=== PATIENT | female | born 1970 | race Caucasian/White ===

== ENCOUNTER 2017-04-30 16:14 | Outpatient (RCR) | payer BC, SELFPAY ==
--- NOTE | 2017-04-30 17:57 | HMH.PTOPEV ---
Rehab Outpatient Evaluation Rehab OP Evaluation Start: 04/30/17 17:45 Freq: Status: Active Protocol: Document 04/30/17 17:46 KEEFESTUS (Rec: 04/30/17 17:57 RYAN [id number]) Electronically Signed By Sergo Solomon PT 04/30/17 17:46 Outpatient Therapy Subjective History Subjective History This is the initial Physical Therapy evaluation for Raquel Law. Pt is a 46 y/o female referred to PT for c/o L sided LBP. Pt reports pain began ~ 1 month ago after gymnastics practice. 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 Pt reports after this she felt like she had a strain . Pt reports ~ 1 week later she fell on ice in a parking lot, felt pop and severe pain, w/ c/o paresthesia in BLE. Chief Complaint Pain Stiff Symptom Type Ache Throb Sharp Dull Stabbing Numbness Tingling Symptoms Relieved By Rest/Positioning Ice Prescription Meds Symptoms Aggravated By Physical Activity Twisting Prior Functional Limitations None Current Functional Limitations Recreation Activity Symptom Description Constant but Variable Pain at Rest Activity Dependent Pain scale - at its best (0-10) 2 Pain scale - at its worst (0-10) 10 Lumbopelvic Eval Posture Thoracic Spine Posture Standing Position Neutral Lumbar Spine Posture Standing Position Neutral Assistive device Assistive Devices None / NA Palapation tenderness left thoracic spinal tenderness No lumbar spinal tenderness Yes paraspinal tenderness Yes buttock tenderness Yes: L PSIS and Post SIJ Ligaments Lumbar/Sacral Palpation Findings Tenderness Lumbar/Sacral Palpation Overall Comment Most TTP at L SIJ Range of Motion Lumbar Spine Active Flexion Range of WFL Motion (degrees) Lumbar Spine Active Extension Range of 10 w/pain Motion (degrees)
== END 2017-04-30 16:15 | disposition home or self-care (01) ==
LOC: PT 16:14
PROVIDERS: Family Provider Internal Medicine Adolescent Medicine; PCP Internal Medicine Adolescent Medicine; Visit Provider Internal Medicine Adolescent Medicine
DX: M54.5 Low back pain (principal)
CPT/HCPCS: 97033; 97110

== ENCOUNTER 2018-07-31 21:02 | Observation (INO) ==
[2018-07-31 21:15] LABS: Basophils % 0.5 % (0.1-2.0); Eosinophils # 0.2 K/mm3 (0.0-0.4); Eosinophils % 3.3 % (0.1-12.0); Hematocrit 42.5 % (37.0-47.0); Hemoglobin 14.8 g/dL (12.2-16.2); Lymphocytes % 46.1 % (10-50); Mean Corpuscular HGB Conc 34.9 g/dL (31.8-35.4); Mean Corpuscular Hemoglobin 33.2 pg (27.0-31.2); Mean Corpuscular Volume 95.1 fl (81-99); Mean Platelet Volume 7.8 fl (7.4-10.4); Monocytes # 0.3 K/mm3 (0.1-1.0); Monocytes % 4.8 % (1.7-9.3); Neutrophils % 45.3 % (37.0-80.0); Platelet Count 241 K/mm3 (142-424); Red Blood Count 4.47 M/mm3 (4.20-5.40); Red Cell Distribution Width 12.4 % (11.5-17.5); White Blood Count 6.5 K/mm3 (4.8-10.8)
[2018-07-31 21:33] LABS: Anion Gap 15.7 mEq/L (5-15); Blood Urea Nitrogen 15 mg/dL (7-18); Calcium 9.2 mg/dL (8.5-10.1); Carbon Dioxide 26 mmol/L (21.0-32.0); Chloride 103 mmol/L (98-107); Glucose 125 mg/dL (74-106); Potassium 3.7 mmoL/L (3.5-5.1); Sodium 141 mmol/L (136-145)
--- NOTE | 2018-07-31 21:50 | Emergency Department Note ---
ED Disposition Clinical Impression: Chest pain Qualifiers: Chest pain type: precordial pain Qualified Code(s): R07.2 - Precordial pain Disposition: Admitted as Observation Condition on Discharge: Good - Critical Care Critical Care Time: No Attestation: On 07/31/18, the high probability of a clinically significant, sudden or life threatening deterioration of the following system(s) required my full and direct attention, intervention and personal management. The time I documented below is in addition to time spent performing reported procedures but includes the following listed in this critical care notation. Medical Decision Making - Medical Records Medical records reviewed: Yes: I reviewed the patient's medical records. - Fabrizio Inquiry Pt receiving controlled substance: No Vital Signs: 07/31/18 21:05 Temperature 98.0 F Temperature Source Oral Pulse Rate [Right] 86 Respiratory Rate 18 Blood Pressure [Right Arm] 124/75 Blood Pressure Mean [Right Arm] 91 Blood Pressure Source [Right Arm] Automatic Cuff Blood Pressure Position [Right Arm] Supine 02 Sat by Pulse Oximetry 96 Oxygen Delivery Method Room Air - Lab Data Lab results reviewed: Yes: I reviewed the patient's lab results. Lab Results 07/31/18 21:00: WBC 6.5, RBC 4.47, Hgb 14.8, Hct 42.5, MCV 95.1, MCH 33.2 H, MCHC 34.9, RDW 12.4, Plt Count 241, MPV 7.8, Neut % (Auto) 45.3, Lymph % (Auto) 46.1, Daniels % (Auto) 4.8, Eos % (Auto) 3.3, Baso % (Auto) 0.5, Neut # (Auto) 3.0, Lymph # (Auto) 3.0, Daniels # (Auto) 0.3, Eos # (Auto) 0.2, Baso # (Auto) 0.0 07/31/18 21:00: Sodium 141, Potassium 3.7, Chloride 103, Carbon Dioxide 26, Anion Gap 15.7 H, BUN 15, Creatinine 0.97, Estimated Creat Clear 65, Estimated GFR 62, Est GFR ( Amer) 74, Glucose 125 H, Calcium 9.2, Troponin I < 0.02 Result diagrams: 07/31/18 21:00 07/31/18 21:00 Orders (Tests/Meds): ED MEDICATIONS Generic Name Dose Route Start Last Admin Trade Name Freq PRN Reason Stop Dose Admin Sodium Chloride 1,000 mls @ 999 mls/hr 07/31/18 21:15 07/31/18 21:13 Sod Chlor 0.9% 1000ml Bag IV 07/31/18 22:15 999 mls/hr .Q1H1M AVINASH Administration Discontinued Medications Generic Name Dose Route Start Last Admin Trade Name Antonioq PRN Reason Stop Dose Admin Aspirin 324 mg 07/31/18 21:04 07/31/18 21:12 Aspirin 81mg Chewable Tablet PO 07/31/18 21:05 324 mg ONCE ONE Administration Ioversol 70 ml 07/31/18 22:05 07/31/18 22:07 Rad-Optiray 350 100ml Vial IV 07/31/18 22:06 70 ml ONCE ONE Administration Protocol Sodium Chloride 50 ml 07/31/18 22:05 07/31/18 22:07 Rad-Ns 50ml Vial IV 07/31/18 22:06 50 ml ONCE ONE Administration ORDERS Category Date Time Status CT angio chest Stat Cat Scan 07/31/18 21:37 Taken Chest XR 2 view (NOT portable) [XR chest 2V] Stat Exams 07/31/18 21:03 Taken - Radiology Data #1 Image(s): Chest Image Reviewed: Yes I reviewed the patient's radiology image Preliminary Findings: Normal/NAD - CT Data CT Scan: Chest Time Received: 22:[address] Reviewed: Yes: I have viewed the radiologist's interpretation Preliminary Findings: Normal/NAD - ECG Data Tracing #1 Normal Sinus Rhythm: Yes Ischemic changes: non-specific ST-T wave changes Chest Pain HPI - General Chief Complaint: Chest Pain Stated Complaint: chest pain Time Seen by Provider: 07/31/18 21:20 Mode of Arrival: Ambulatory Source of Information: Patient, Spouse, Medical Record Limitations: No Limitations Description of Symptoms (Recalled from ER Triage Doc. by RN): Pt states she started having chest pain with SOA after a run - History of Present Illness HPI narrative: acute 30-40 min episode of chest pain squeezing type and assoc sob - no prev episodes - resolved - no diaphoresis and no vomiting complaint: chest pain indicative of cardiac Onset (ago): hour(s) Duration: now resolved Activity at onset: during exertion Pain location: substernal Severity: severe Quality: other (squeezing ) Associated symptoms: sense of impending doom Risk Factors for CAD: Family Hx of CAD Treatments prior to or on arrival for Cardiac Chest Pain: none - ALAN Score for Non-Stemi Age of Patient: 40-49 years old Heart Rate: 70-89 bpm Systolic Blood Pressure: 120-139 mmhg Serum Creatinine: 0.80-1.19 mg/dl CHF Killip Class: I-No CHF Other Risk Factors: None Non-Stemi Risk Score: 75 - Related Data Allergies Allergy/AdvReac Type Severity Reaction Status Date / Time No Known Allergies Allergy Verified 07/31/18 21:11 [facility] History - Hepatitis A Screen Drug use history?: No High risk sexual behaviors?: No History of sexually transmitted infection?: No Currently employed?: No Childcare worker?: No Do you have indoor plumbing?: Yes Do you have electricity?: Yes Attestation statement:: This patient has been screened for Hepatitis A risk factors. I have reviewed the patient's past medical history: Yes Medical History: Denies:: Diabetes Mellitus Type 1, Diabetes Mellitus Type 2 - Social History Alcohol Intake: never Occupational Status: employed - Psychiatric History Expresses thoughts of harming self/others: None Suicide Plan Description: No Plan ROS Obtained: Yes All systems reviewed & no additional complaints - Constitutional Constitutional: Denies fever(s) - Eyes Eyes: Denies change in vision - ENT Ears, Nose, Mouth, and Throat: Denies sore throat - Cardiovascular Cardiovascular: Reports chest pain, Reports chest pain with activity, Reports dyspnea - Respiratory Respiratory: No cough - Gastrointestinal Gastrointestingal: Denies: abdominal pain - Genitourinary Female Genitourinary: Denies hematuria - Musculoskeletal Musculoskeletal: Denies joint pain - Integumentary/Breasts Skin/Breast: Denies rash - Neurologic Neurologic: Denies seizure-like activity Physical Exam - General General appearance: alert, in no apparent distress - Head Head exam: normocephalic - Eye Eye exam: Present: PERRL, EOMI. Absent: scleral icterus - ENT ENT exam: Present: mucous membranes moist - Neck Neck exam: Present: trachea midline - Respiratory Respiratory exam: Present: normal lung sounds bilaterally. Absent: respiratory distress - Cardiovascular Cardiovascular exam: Present: regular rate, systolic murmur - Abdominal Exam Abdominal exam: Present: soft. Absent: tenderness - Extremities Exam Extremities exam: Present: full ROM - Neurological Exam Neurological exam: Present: alert, oriented X3, CN II-XII intact - Psychiatric Psychiatric exam: Present: normal affect - Skin Skin exam: Absent: rash
[2018-08-01 04:56] LABS: Basophils % 0.4 % (0.1-2.0); Eosinophils # 0.1 K/mm3 (0.0-0.4); Eosinophils % 2.8 % (0.1-12.0); Hematocrit 38.9 % (37.0-47.0); Lymphocytes # 1.8 K/mm3 (0.7-4.5); Lymphocytes % 37.2 % (10-50); Mean Corpuscular Hemoglobin 32.9 pg (27.0-31.2); Mean Corpuscular Volume 96.9 fl (81-99); Mean Platelet Volume 8.5 fl (7.4-10.4); Monocytes # 0.2 K/mm3 (0.1-1.0); Monocytes % 4.3 % (1.7-9.3); Neutrophils # 2.7 K/mm3 (1.8-7.8); Neutrophils % 55.4 % (37.0-80.0); Platelet Count 172 K/mm3 (142-424); Red Blood Count 4.01 M/mm3 (4.20-5.40); Red Cell Distribution Width 12.4 % (11.5-17.5); White Blood Count 4.8 K/mm3 (4.8-10.8)
[2018-08-01 05:03] LABS: Hemoglobin 13.3 g/dL (12.2-16.2)
[2018-08-01 05:07] LABS: Anion Gap 11.7 mEq/L (5-15); Calcium 9.2 mg/dL (8.5-10.1); Chol/HDL Ratio 1.9 (1-3.5); Potassium 3.7 mmoL/L (3.5-5.1)
--- NOTE | 2018-08-01 07:37 | H&P/Discharge Summary ---
General - General Admission date:: 07/31/18 Discharge date: 08/01/18 *Admission Date: 07/31/18 *Chief complaint: Chest pain *History of present illness: 47-year-old white female with essentially no past medical history who was jogging yesterday evening after eating some spaghetti and a couple of miles into her jog began to have substernal squeezing pain. She had no nausea, no diaphoresis or dyspnea over her baseline, and was able to walk partway and then finished her dog while running. She came back home and had another episode of pain while talking to her , again centered in the substernal area that she describes as an intensely painful squeezing sensation. No palpitations. She is had no recent problems with dyspnea, edema, palpitations or functional issues. Her transported her to the emergency department, and as they pulled into the parking lot the pain suddenly subsided. Evaluation in the ER was negative but she was admitted overnight for rule out MS. [facility] History I have reviewed the patient's past medical history: Yes Medical History: Denies:: Cancer, Diabetes Mellitus Type 1, Diabetes Mellitus Type 2, MRSA *Have you ever received a pneumonia vaccine?: No *Have you received a flu vaccine this season?: Yes Other Surgeries: Yes: , Thyroidectomy, Other (ABLATION) Amputation: No Fractures: No - *Social History Educational Level: Attended College Smoking Status: Never smoker Alcohol Intake: never *Occupational Status:: employed Housing: house Household Members: spouse *Travel in the last 8 weeks: None - Psychiatric History Expresses thoughts of harming self/others: None Suicide Plan Description: No Plan Family Hx:: Coronary Artery Disease, Diabetes, Hypertension Review of Systems - Review of Systems Review of systems:: pertinent systems reviewed and negative unless documented below - Constitutional Denies anorexia, Denies body ache(s), Denies fatigue - Eyes Denies blind spots, Denies blurry vision - ENT Denies abnormal hearing, Denies bleeding gums - *Cardiovascular Reports chest pain, Reports chest pain with activity, Denies shortness of breath, Denies shortness of breath with activity, Denies irregular heart rhythm, Denies leg swelling, Denies shortness of breath when lying down - *Respiratory Denies change in phlegm color, Denies chest congestion, Denies cough - *Gastrointestinal Denies abdominal pain, Denies belching, Denies change in stools - *Genitourinary Denies abnormal periods - *Musculoskeletal Denies abnormal walking, Denies joint pain, Denies decreased muscle mass - Integumentary/Breasts Denies acne - *Neurologic Denies abnormal walking, Denies behavioral changes, Denies burning sensations, Denies seizure-like activity - Psychiatric Denies abnormal sleep pattern Exam Vital signs and Labs for Last 24 Hours: Temp Pulse Resp BP Pulse Ox 97.6 F 66 16 116/66 100 08/01/18 04:00 08/01/18 04:00 08/01/18 04:00 08/01/18 04:00 08/01/18 04:00 Laboratory Results - last 24 hr 07/31/18 21:00: WBC 6.5, RBC 4.47, Hgb 14.8, Hct 42.5, MCV 95.1, MCH 33.2 H, MCHC 34.9, RDW 12.4, Plt Count 241, MPV 7.8, Neut % (Auto) 45.3, Lymph % (Auto) 46.1, Loup % (Auto) 4.8, Eos % (Auto) 3.3, Baso % (Auto) 0.5, Neut # (Auto) 3.0, Lymph # (Auto) 3.0, Loup # (Auto) 0.3, Eos # (Auto) 0.2, Baso # (Auto) 0.0 07/31/18 21:00: Sodium 141, Potassium 3.7, Chloride 103, Carbon Dioxide 26, Anion Gap 15.7 H, BUN 15, Creatinine 0.97, Estimated Creat Clear 65, Estimated GFR 62, Est GFR ( Amer) 74, Glucose 125 H, Calcium 9.2, Troponin I < 0.02 08/01/18 01:55: Troponin I < 0.02 08/01/18 04:45: Troponin I < 0.02 08/01/18 04:45: WBC 4.8 D, RBC 4.01 L, Hgb 13.3 D, Hct 38.9, MCV 96.9, MCH 32.9 H, MCHC 34.0, RDW 12.4, Plt Count 172 D, MPV 8.5, Neut % (Auto) 55.4, Lymph % (Auto) 37.2, Loup % (Auto) 4.3, Eos % (Auto) 2.8, Baso % (Auto) 0.4, Neut # (Auto) 2.7, Lymph # (Auto) 1.8, Loup # (Auto) 0.2, Eos # (Auto) 0.1, Baso # (Auto) 0.0 08/01/18 04:45: Sodium 142, Potassium 3.7, Chloride 106, Carbon Dioxide 28, Anion Gap 11.7, BUN 14, Creatinine 0.74 D, Estimated Creat Clear 85, Estimated GFR 84, Est GFR ( Amer) 102 D, Glucose 96 D, Calcium 9.2, Magnesium 1.7, Triglycerides 22 L, Cholesterol 128 L, LDL Cholesterol 57, VLDL Cholesterol 4, HDL Cholesterol 67, Cholesterol/HDL Ratio 1.9 I & O for Last 24 hours: Intake & Output 07/29/18 07/30/18 07/31/18 08/01/18 11:59 11:59 11:59 11:59 Intake Total 1250 / 1250 Balance 1250 / 1250 Weight 127 lb 5 oz - Constitutional no acute distress, thin - *Routine HEENT Exam Head: Present: normocephalic, atraumatic Eye: Present: EOMI, PERRL - *Routine Neck Exam Present: supple, full ROM. Absent: JVD, carotid bruit - Routine Chest/Breast/Axilla Exam Chest wall: Present: tenderness - *Routine Respiratory Exam Present: CTA bilaterally. Absent: accessory muscle use, prolonged expiratory phase, rales, respiratory distress - *Routine Cardiovascular Exam Present: RRR, Normal S1, Normal S2, murmur - *Routine Abdominal Exam Present: soft, normoactive bowel sounds. Absent: tenderness - *Routine Extremities Exam Absent: cyanosis, clubbing, edema, full ROM Hospital Course Hospital Course: Patient was admitted overnight, ruled out for myocardial infarction, no further pain, no problems with swallowing. This morning exam remains normal. Feels good. Preliminary echo reports look normal. Probable issue is esophageal spasm. Plan will be to discharge home on omeprazole. We will set up outpatient stress test and follow-up in the office in a couple of weeks. Results Labs on day of discharge: Labs from last 24 hours 08/01/18 08/01/18 08/01/18 04:45 04:45 04:45 WBC 4.8 D RBC 4.01 L Hgb 13.3 D Hct 38.9 MCV 96.9 MCH 32.9 H MCHC 34.0 RDW 12.4 Plt Count 172 D MPV 8.5 Neut % (Auto) 55.4 Lymph % (Auto) 37.2 Loup % (Auto) 4.3 Eos % (Auto) 2.8 Baso % (Auto) 0.4 Neut # (Auto) 2.7 Lymph # (Auto) 1.8 Loup # (Auto) 0.2 Eos # (Auto) 0.1 Baso # (Auto) 0.0 Sodium 142 Potassium 3.7 Chloride 106 Carbon Dioxide 28 Anion Gap 11.7 BUN 14 Creatinine 0.74 D Estimated Creat Clear 85 Estimated GFR 84 Est GFR ( Amer) 102 D Glucose 96 D Calcium 9.2 Magnesium 1.7 Troponin I < 0.02 Triglycerides 22 L Cholesterol 128 L LDL Cholesterol 57 VLDL Cholesterol 4 HDL Cholesterol 67 Cholesterol/HDL Ratio 1.9 08/01/18 07/31/18 07/31/18 01:55 21:00 21:00 WBC 6.5 RBC 4.47 Hgb 14.8 Hct 42.5 MCV 95.1 MCH 33.2 H MCHC 34.9 RDW 12.4 Plt Count 241 MPV 7.8 Neut % (Auto) 45.3 Lymph % (Auto) 46.1 Loup % (Auto) 4.8 Eos % (Auto) 3.3 Baso % (Auto) 0.5 Neut # (Auto) 3.0 Lymph # (Auto) 3.0 Loup # (Auto) 0.3 Eos # (Auto) 0.2 Baso # (Auto) 0.0 Sodium 141 Potassium 3.7 Chloride 103 Carbon Dioxide 26 Anion Gap 15.7 H BUN 15 Creatinine 0.97 Estimated Creat Clear 65 Estimated GFR 62 Est GFR ( Amer) 74 Glucose 125 H Calcium 9.2 Magnesium Troponin I < 0.02 < 0.02 Triglycerides Cholesterol LDL Cholesterol VLDL Cholesterol HDL Cholesterol Cholesterol/HDL Ratio DS: Diagnosis - Discharge Diagnosis (1) Esophageal spasm Status: Resolved (2) Chest pain Status: Resolved Discharge Medications - Medications for Discharge Home Medication List at Discharge: New Omeprazole 20 mg PO DAILY #30 tablet.dr Continued Doxycycline Hyclate [Doxycycline 20mg Tablet] 20 mg PO BID
--- NOTE | 2018-08-01 18:01 | Cardiology Report ---
PROCEDURE: 2-D M-mode and color Doppler study INDICATIONS FOR THE TEST: Chest pain X COPD Heart Murmur Tobacco Smoking Palpitations Fatigue Syncope Edema Hypertension Diabetes Mellitus Rheumatic Fever SOB HOLMAN Obesity Hyperlipidemia Family History HD Additional History PATIENT INFORMATION HEIGHT: 63 WEIGHT:127 GENDER: Female B/P:124/75 2-D/M-MODE INTERPRETATION: 2-D MEASUREMENTS OBSERVED VALUES IN CMS Right Ventricular Dimension (RVDd) 2.0 Interventricular Septum (Thickness)(IVsd) .7 Left Ventricular Internal Dimensions(LVIDd) 5.3 Left Ventricular Posterior Wall (Thickness)(LVPWd) .7 Aortic Root 2.4 Aortic Cusp Separation 1.5 Left Atrial Dimensions (LAD) 2.4 2D 1. Left atrium is normal size, left ventricle is normal size, there is no concentric left ventricular hypertrophy, visually estimated ejection fraction 55% with no regional wall motion abnormality. 2. The right atrium and right ventricle are normal size and contractility. 3. The aortic, mitral and tricuspid valve are grossly normal. 4. The pulmonic valve is poorly visualized. 5. No significant pericardial effusion noted. DOPPLER INTERROGATION: Doppler interrogation of the aortic, mitral and tricuspid valvular presence of mild mitral and tricuspid regurgitation, tricuspid regurgitation jet velocity is inadequate for calculation of the right ventricular systolic pressure, diastolic parameters are within normal range. CONCLUSION: 1. Normal left ventricular size, preserved left ventricular systolic function, visually estimated ejection fraction 55% with no regional wall motion abnormality, diastolic parameters are within normal range. 2. Mild mitral and tricuspid regurgitation 3. No significant pericardial effusion noted.
== END 2018-08-01 09:54 | disposition home or self-care (01) ==
LOC: 2ND 21:02 → ER 21:02 → 2ND 23:15
PROVIDERS: ADMIT Emergency Medicine; ATTEND Internal Medicine Adolescent Medicine
DX: R06.02 Shortness of breath; K22.4 Dyskinesia of esophagus; R07.9 Chest pain, unspecified
CPT/HCPCS: 36415; 71020; 71046; 71275; 80048; 80061; 83735; 84484; 85025; 93005; 93306; 96365; 99284; G0378; Q9967

== ENCOUNTER → 2018-08-05 09:13 | Outpatient (CLI) | payer BC, SELFPAY | PROVIDERS: PCP Internal Medicine Adolescent Medicine; Visit Provider Internal Medicine Adolescent Medicine | DX: R07.9 Chest pain, unspecified (principal) | CPT/HCPCS: 93017 ==

== ENCOUNTER 2020-03-20 09:13 | Emergency (ER) | payer BC, SELFPAY ==
[2020-03-20 09:15] VITALS: BP 140/74; PULSE 70; RESP 16; TEMP 36.8; O2SAT 98; BMI 22.1
[2020-03-20 09:28] LABS: UTC Strep Screen (Rapid) Positive (Negative)
--- NOTE | 2020-03-20 09:41 | HMH.EDUTC ---
[facility] [place] Clinical Impression: Strep throat Disposition: Home, Self-Care Condition on Discharge: Good Instructions: Strep Throat, DI for Strep Throat Additional Instructions: Drink plenty of fluids. Take tylenol or ibuprofen for pain or fever. Take the medications as directed. Follow up with your regular doctor. GO TO THE ER FOR ANY WORSENING SYMPTOMS Throw your tooth brush away and get a new one. Prescriptions: Amoxicillin [Amoxicillin 500mg Tab] 500 mg PO TID 10 Days #30 tab Transmission Status: Received by [id number] predniSONE [Deltasone 10mg tablet] 10 mg PO BID 3 Days #6 tab Transmission Status: Received by [id number] Referrals: Torres Jack MD [Primary Care Provider] - Time of Disposition: 09:43 Medical Decision Making - Medical Records Medical records reviewed: No: I reviewed the patient's medical records. - Fabrizio Inquiry Pt receiving controlled substance: No Vital Signs: 03/20/20 09:15 03/20/20 09:45 Temperature 98.3 F 98.3 F Temperature Source Oral Pulse Rate 70 Pulse Rate [Right Brachial] 70 Respiratory Rate 16 16 Blood Pressure 140/74 Blood Pressure [Right Arm] 140/74 Blood Pressure Mean [Right Arm] 96 Blood Pressure Source [Right Arm] Automatic Cuff Blood Pressure Position [Right Arm] Sitting 02 Sat by Pulse Oximetry 98 Oxygen Delivery Method Room Air - Lab Data Lab results reviewed: Yes: I reviewed the patient's lab results. Lab Results 03/20/20 09:27: Strep Scn Rapid Clinic Positive A [facility] [place] - General Stated complaint: sore throat Time Seen by Provider: 03/20/20 09:41 Mode of Arrival: Ambulatory Source of Information: Patient Limitations: No Limitations Description of Symptoms (Recalled from Triage Doc. by RN): PATIENT C/O SORE THROAT HEENT Symptoms (Recalled from RN notes): Yes Resp Symptoms (Recalled from RN notes): No Skin Symptoms (Recalled from RN notes): No MS Symptoms (Recalled from RN notes): No Functional Status (Recalled from RN notes): wnl - History of Present Illness Provider Complaint: She c/o sore throat for the past 3 days. She has a history of getting strep throat fairyly often. She denies any known covid exposure. - Related Data Previous Rx's Medication Instructions Recorded Amoxicillin [Amoxicillin 500mg Tab] 500 mg PO TID 10 Days #30 tab 03/20/20 predniSONE [Deltasone 10mg tablet] 10 mg PO BID 3 Days #6 tab 03/20/20 Allergies Allergy/AdvReac Type Severity Reaction Status Date / Time No Known Allergies Allergy Verified 06/03/19 11:23 - Worker's Comp Is this a Worker's Comp case?: No [facility] History - Hepatitis A Screen Drug use history?: No High risk sexual behaviors?: No History of sexually transmitted infection?: No Currently employed?: No Childcare worker?: No Do you have indoor plumbing?: Yes Do you have electricity?: Yes Attestation statement:: This patient has been screened for Hepatitis A risk factors. I have reviewed the patient's past medical history: Yes Medical History: Denies:: Cancer, Diabetes Mellitus Type 1, Diabetes Mellitus Type 2, MRSA Other Surgeries: Yes: , Thyroidectomy, Other Amputation: No Fractures: No - Social History Smoking Status: Never smoker Alcohol Intake: never Occupational Status: other Housing: house Household Members: spouse Family Hx:: Coronary Artery Disease, Diabetes, Hypertension ROS Obtained: Yes All systems reviewed & no additional complaints - Constitutional Constitutional: Reports chills, Denies fever(s), Reports poor appetite, Reports malaise - Eyes Eyes: Denies eye discharge - ENT Ears, Nose, Mouth, and Throat: Reports as per HPI - Cardiovascular Cardiovascular: Denies chest pain - Gastrointestinal Gastrointestingal: Reports: nausea. Denies: abdominal pain, diarrhea, vomiting Physical Exam - General General appearance: alert, in no apparent distress - Head Head exam: atrauma
[2020-03-20 09:45] VITALS: BP 140/74; PULSE 70; RESP 16; TEMP 36.8; O2SAT 98
== END 2020-03-20 09:48 | disposition home or self-care (01) ==
PROVIDERS: Emergency Provider Nurse Practitioner Family; PCP Internal Medicine Adolescent Medicine
DX: J02.0 Streptococcal pharyngitis (principal)
CPT/HCPCS: 87880; 99201

== ENCOUNTER 2020-09-04 14:19 | Emergency (ER) | payer BC, SELFPAY ==
[2020-09-04 14:32] VITALS: BP 121/73; PULSE 74; RESP 16; TEMP 36.4; O2SAT 98; BMI 24.7
[2020-09-04 14:47] LABS: Apearance,Urine Turbid (Clear); Color,Urine Orange (Yellow); Glucose,Urine (UA) Negative (Negative); Ketones,Urine Negative (Negative); Protein,Urine Negative (Negative); Specific Gravity, Urine > 1.030 (1.005-1.030)
[2020-09-04 14:48] LABS: Bilirubin,Urine Negative (Negative); Blood, Urine Trace (Negative); UTC Leukocyte Esterase,Urine Negative (Negative); UTC Nitrate,Urine Positive (Negative); Urobilinogen,Urine 0.2 EU/dl (0.2)
--- NOTE | 2020-09-04 15:03 | HMH.EDUTC ---
[facility] Disposition Clinical Impression: UTI (urinary tract infection) Qualifiers: Urinary tract infection type: site unspecified Hematuria presence: with hematuria Qualified Code(s): N39.0 - Urinary tract infection, site not specified Disposition: Home, Self-Care Condition on Discharge: Good Instructions: Urinary Tract Infection, DI for Urinary Tract Infection (UTI) Additional Instructions: Drink plenty of fluids. Take tylenol or ibuprofen for pain or fever. Take the medications as directed. Follow up with your regular doctor. GO TO THE ER FOR ANY WORSENING SYMPTOMS The pyridium will make your urine turn orange, this is an expected side effect. It will stain your clothes if it comes into contact with them. Prescriptions: Sulfamethoxazole/Trimethoprim [Bactrim DS tablet] 1 each PO BID 7 Days #14 tab Transmission Status: Received by [id number] Phenazopyridine HCl [Pyridium 200mg Tablet] 200 pow PO TID #6 tab Transmission Status: Received by [id number] Referrals: Torres Jack MD [Primary Care Provider] - Time of Disposition: 15:06 Medical Decision Making - Medical Records Medical records reviewed: No: I reviewed the patient's medical records. - Fabrizio Inquiry Pt receiving controlled substance: No Vital Signs: 09/04/20 14:32 09/04/20 15:21 Temperature 97.6 F 98 F Temperature Source Oral Pulse Rate 79 Pulse Rate [Right] 74 Respiratory Rate 16 16 Blood Pressure 120/74 Blood Pressure [Right Arm] 121/73 Blood Pressure Mean [Right Arm] 89 Blood Pressure Source [Right Arm] Automatic Cuff Blood Pressure Position [Right Arm] Sitting 02 Sat by Pulse Oximetry 98 Oxygen Delivery Method Room Air - Lab Data Lab Results 09/04/20 14:42: Urine Color [place], Urine Appearance Turbid, Urine pH 6.0, Ur Specific [place] > 1.030 H, Urine Protein Negative, Urine Glucose (UA) Negative, Urine Ketones Negative, Urine Blood Trace, Urine Nitrate Positive A, Urine Bilirubin Negative, Urine Urobilinogen 0.2, Ur Leukocyte Esterase Negative Orders (Tests/Meds): ORDERS Category Date Time Status Urine Culture Stat Micro 09/04/20 18:26 Ordered [facility] HPI - General Stated complaint: Poss UTI Time Seen by Provider: 09/04/20 15:03 Mode of Arrival: Ambulatory Source of Information: Patient Limitations: No Limitations HEENT Symptoms (Recalled from RN notes): No Resp Symptoms (Recalled from RN notes): No Skin Symptoms (Recalled from RN notes): No MS Symptoms (Recalled from RN notes): No Functional Status (Recalled from RN notes): na - History of Present Illness Provider Complaint: She states that for the past 2 days, she has had low back pain and burning while urinating. She believes that she has a uti. - Related Data Previous Rx's Medication Instructions Recorded Amoxicillin [Amoxicillin 500mg Tab] 500 mg PO TID 10 Days #30 tab 03/20/20 predniSONE [Deltasone 10mg tablet] 10 mg PO BID 3 Days #6 tab 03/20/20 Phenazopyridine HCl [Pyridium 200 pow PO TID #6 tab 09/04/20 200mg Tablet] Sulfamethoxazole/Trimethoprim 1 each PO BID 7 Days #14 tab 09/04/20 [Bactrim DS tablet] Allergies Allergy/AdvReac Type Severity Reaction Status Date / Time No Known Allergies Allergy Verified 06/03/19 11:23 - Worker's Comp Is this a Worker's Comp case?: No [facility] History - Hepatitis A Screen Drug use history?: No High risk sexual behaviors?: No History of sexually transmitted infection?: No Currently employed?: No Childcare worker?: No Do you have indoor plumbing?: Yes Do you have electricity?: Yes Attestation statement:: This patient has been screened for Hepatitis A risk factors. I have reviewed the patient's past medical history: Yes Medical History: Denies:: Cancer, Diabetes Mellitus Type 1, Diabetes Mellitus Type 2, MRSA Other Surgeries: Yes: , Thyroidectomy, Other Amputation: No Fractures: No - Social History Smoking Status: N
[2020-09-04 15:21] VITALS: BP 120/74; PULSE 79; RESP 16; TEMP 36.6
== END 2020-09-04 15:23 | disposition home or self-care (01) ==
PROVIDERS: Emergency Provider Nurse Practitioner Family; PCP Internal Medicine Adolescent Medicine
DX: N30.00 Acute cystitis without hematuria (principal)
CPT/HCPCS: 81003; 99202; G0463

== ENCOUNTER 2022-01-03 11:01 | Emergency (ER) | payer BC, SELFPAY ==
[2022-01-03 11:31] VITALS: BP 165/84; PULSE 68; RESP 18; TEMP 36.7; O2SAT 99; BMI 24.7
--- NOTE | 2022-01-03 11:31 | EXP.UTC ---
Discharge Plan Disposition Patient Disposition: Home, Self-Care Condition: Good Prescriptions Prescriptions: New nitrofurantoin monohyd/m-cryst [Macrobid] 100 mg Capsule 100 mg PO BID Qty: 10 0RF Rx Instructions: must administer with a meal/food phenazopyridine [Pyridium] 200 mg tablet 200 mg PO Q8H 2 Days Qty: 6 0RF fluconazole [Diflucan] 150 mg tablet 150 mg PO ONCE Qty: 1 2RF No Action phenazopyridine 200 MG tablet 200 pow PO TID Qty: 6 0RF sulfamethoxazole-trimethoprim 1 EACH tablet 1 each PO BID 7 Days Qty: 14 0RF prednisone 10 MG tablet 10 mg PO BID 3 Days Qty: 6 0RF amoxicillin 500 MG tablet 500 mg PO TID 10 Days Qty: 30 0RF Referrals Follow up/Referrals: Torres Jack MD [Primary Care Provider] - See instructions Activity Restrictions/Add. Instructions Additional Instructions/Restrictions: Drink plenty of fluids. Take tylenol or ibuprofen for pain or fever. Take the medications as directed. Follow up with your regular doctor. GO TO THE ER FOR ANY WORSENING SYMPTOMS The pyridium will make your urine turn orange, this is an expected side effect. It will stain your clothes if it comes into contact with them. We will culture the urine. That will tell what bacteria is causing your infection and which antibiotics will treat it best. Sometimes the first antibiotic we prescribe turns out to not work against different bacteria. So, make sure you follow up within 3 days if you are not getting better. Clinical Impressions Clinical Impression: UTI (urinary tract infection) Instructions Patient Instructions: Urinary Tract Infection, DI for Urinary Tract Infection (UTI) Discharge ED Provider: Sudeep Hunt [facility] General Stated complaint: possible UTI Time Seen by Provider: 01/03/22 11:31 History of Present Illness Provider Complaint: She states that for the past 2 days she has had lower back discomfort, dysuria and urinary frequency. Related Data Previous Rx's Medication Instructions Recorded amoxicillin 500 mg tablet 500 mg PO TID 10 days #30 tabs 03/20/20 prednisone 10 mg tablet 10 mg PO BID 3 days #6 tabs 20 phenazopyridine 200 mg tablet 200 pow PO TID #6 tabs 09/04/20 sulfamethoxazole 800 1 each PO BID 7 days #14 tabs 09/04/20 mg-trimethoprim 160 mg tablet fluconazole 150 mg tablet 150 mg PO ONCE #1 tab 01/03/22 (Diflucan) nitrofurantoin 100 mg PO BID #10 caps 01/03/22 monohydrate/macrocrystals 100 mg capsule (Macrobid) phenazopyridine 200 mg tablet 200 mg PO Q8H 2 days #6 tabs 01/03/22 (Pyridium) Allergies Allergy/AdvReac Type Severity Reaction Status Date / Time No Known Allergies Allergy Verified 06/03/19 11:23 PFSH PFS Social History Smoking Status: Never smoker alcohol intake: never current occupational status: other Travel in the last 8 weeks: None household members: spouse housing: house caffeine: Yes ROS Obtained: Yes All systems reviewed & no additional complaints except as documented Constitutional Constitutional: Reports system reviewed and no additional complaints, except as documented, Denies chills and Denies fever(s) Eyes Eyes: Denies eye discharge ENT Ears, Nose, Mouth, and Throat: Denies dysphagia, Denies sore throat and Denies throat swelling Cardiovascular Cardiovascular: Denies chest pain and Denies dyspnea Respiratory Respiratory: Denies chest congestion, Denies cough and Denies dyspnea Gastrointestinal Gastrointestingal: Denies abdominal pain, constipation, diarrhea, dysphagia, nausea or vomiting Genitourinary Female Genitourinary: Reports as per HPI, Reports dysuria, Reports sexual dysfunction, Reports urinary frequency, Denies urinary incontinence and Reports urinary hesitancy Musculoskeletal Musculoskeletal: Denies arthralgias and Reports back pain Integumentary/Breasts Skin/Breast: Denies rash Neurol
[2022-01-03 11:37] LABS: Apearance,Urine Clear (Clear); Bilirubin,Urine Negative (Negative); Blood, Urine Negative (Negative); Color,Urine Yellow (Yellow); Glucose,Urine (UA) Negative (Negative); Ketones,Urine Negative (Negative); Protein,Urine Negative (Negative); UTC Leukocyte Esterase,Urine Trace (Negative); UTC Nitrate,Urine Negative (Negative); Urobilinogen,Urine 0.2 EU/dl (0.2)
[2022-01-03 12:26] VITALS: BP 165/84; PULSE 68; RESP 18; TEMP 36.7
== END 2022-01-03 12:26 | disposition home or self-care (01) ==
PROVIDERS: Emergency Provider Nurse Practitioner Family; PCP Internal Medicine Adolescent Medicine
DX: N39.0 Urinary tract infection, site not specified (principal)
CPT/HCPCS: 81003; 87086; 99212; G0463

== ENCOUNTER → 2022-11-24 15:51 | Outpatient (CLI) | payer BC, SELFPAY | PROVIDERS: PCP Internal Medicine Adolescent Medicine; Visit Provider Nurse Practitioner Family | DX: G47.33 Obstructive sleep apnea (adult) (pediatric) (principal); R06.83 Snoring | CPT/HCPCS: 95806 ==

== ENCOUNTER 2023-09-19 10:27 | Outpatient (CLI) | payer BC, SELFPAY | END 2023-09-19 23:59 | disposition home or self-care (01) | LOC: LAB.DROPOF 09-20 10:27 | PROVIDERS: PCP Nurse Practitioner Family; Visit Provider Nurse Practitioner Family | DX: N39.0 Urinary tract infection, site not specified (principal) | CPT/HCPCS: 87086 ==

== ENCOUNTER 2025-03-14 09:02 | Outpatient (CLI) | payer BC, SELFPAY | END 2025-03-14 23:59 | disposition home or self-care (01) | LOC: LAB.DROPOF 03-16 09:04 | PROVIDERS: PCP Internal Medicine Adolescent Medicine; Visit Provider Nurse Practitioner Family | DX: N39.0 Urinary tract infection, site not specified (principal) | CPT/HCPCS: 87086; 87088 ==

== ENCOUNTER 2025-03-30 09:14 | Outpatient (CLI) | payer BC, SELFPAY ==
--- OUTSIDE RECORDS SUMMARY | 2025-03-31 10:48 | XMS_ITS | Clinical Summary ---
Author Organization Healthcare Address [address] [place] [address] Care Team Providers Care Clod Puller Name Role Phone Unavailable Primary Care Provider Unavailabl e Allergies No known active allergies Medications No known medications Social History Tobacco Use Types Packs/Day Years Used Date Smoking Tobacco: Never Smokeless Tobacco: Never Tobacco Cessation:Counseling Given: Not Answered Comments Unknown Sex and Gender Information Value Date Recorded Sex Assigned at Female 02/01/2023 12:39 PM EDT Legal Sex Female 8:44 PM EDT Gender Identity Female 02/01/2023 12:39 PM EDT Sexual Orientation Straight 02/01/2023 12 :39 PM EDT Last Filed Vital Signs Vital Sign Reading Time Taken Comments Blood Pressure 127/80 02/05/2023 1:00 PM EST Pulse 63 02/05/2023 1:00 PM EST Temperature 36.2 C (97.2 F) 02/05/2023 1:00 PM EST Respiratory Rate - - Oxygen Saturation 97% 02/05/2023 1:00 PM EST Inhaled Oxygen Concentration - - Weight 67 kg (147 lb 12.8 oz) 02/05/2023 1:00 PM EST Height 157.5 cm (5' 2 ) 02/05/2023 1:00 PM EST Body Mass Index 27.03 02/05/2023 1:00 PM EST Plan of Treatment Health Maintenance Due Date Last Done Comments Dental Oral Exam 1970 Dental Prophylaxis 1970 Dental X-Ray: Bitewings 1970 Dental X-Ray: Full Mouth 1970 [facility]-Depression Screening 1970 [facility]-HIV Screening 1970 [facility]-Hepatitis C Screening 1970 [facility]-/Child/Adol SDOH Screenings 1970 [facility]- SDOH Screenings 1988 [facility]-Adult SDOH Screenings 1988 [facility]-DTaP,Tdap,and Td Vaccines (1 - Tdap) 1989 [facility]-Hepatitis B Vaccines (1 of 3 - 19+ 3-dose series) 1989 [facility]-Pap Smear 08/17/1991 [facility]-Cervical Cancer Screening 2000 [facility]-HPV/Cotest 2000 CT Colonography 08/17/2015 Colonoscopy 08/17/2015 FIT-DNA 08/17/2015 FIT 08/17/2015 FOBT 08/17/2015 Sigmoidoscopy 08/17/2015 [facility]-Colorectal Cancer Screening 08/17/2015 [facility]-Breast Cancer Screening 2020 [facility]-Pneumococcal Vaccine: 50+ Years (1 of 1 - PCV) 2020 [facility]-Zoster Vaccines (1 of 2) 2020 [id number] Vaccine (1 - 2024- season) 2024 [facility]-Influenza Vaccine (#1) 12/01/202402/08, 02/07/2022, 02/03/2019, Additional history exists [facility]-Hepatitis A Vaccines Aged Out 08/15/2018 No longer eligible based on patient's age to complete this topic [facility]-Obesity Intervention Completed 02/05/2023 HPV Vaccines (No Doses Required) Completed [facility]-HIB Vaccines Aged Out No longer e ligible based on patient's age to complete this topic [facility]-IPV Vaccines Aged Out No longer e ligible based on patient's age to complete this topic [facility]-Rotavirus Vaccines Aged Out No lo nger eligible based on patient's age to complete this topic Insurance [employer]
--- OUTSIDE RECORDS SUMMARY | 2025-03-31 10:48 | XMS_ITS | Encounter Summary ---
Author Organization Healthcare Address [address] [place] [address] Care Team Providers Care Loan Operations Specialist Name Role Phone Unavailable Primary Care Provider Unavailabl e Encounter Details Date Type Department Care Team (Late st Contact Info) Description 12/21/2022 Community [facility] [address] [place] [id number] Raquel Blackwell MD Obstructive sleep apnea (adult) (pediatric) (Primary Dx) Social History Tobacco Use Types Packs/Day Years Used Date Smoking Tobacco: Never Assessed Comments Unknown Sex and Gender Information Value Date Recorded Sex Assigned at Female 02/01/2023 12:39 PM EDT Legal Sex Female 8:44 PM EDT Gender Identity Female 02/01/2023 12:39 PM EDT Sexual Orientation Straight 02/01/2023 12 :39 PM EDT documented as of this encounter Plan of Treatment Not on file documented as of this encounter Visit Diagnoses Diagnosis Obstructive sleep apnea (adult) (pediatric)- Primary documented in this encounter
== END 2025-03-30 23:59 | disposition home or self-care (01) ==
LOC: LAB.DROPOF 03-31 10:22
PROVIDERS: PCP Internal Medicine Adolescent Medicine; Visit Provider Nurse Practitioner
DX: N39.0 Urinary tract infection, site not specified (principal)
CPT/HCPCS: 87086